=== PATIENT | female | born 1945 | race African-American/Black ===

== ENCOUNTER 2025-02-07 10:33 | Inpatient (IN) | payer OTHER ==
[2025-02-07 10:57] VITALS: BMI 46.0
[2025-02-07 12:09] LABS: ABSOLUTE IMMATURE GRANULOCYTES 0.01 x10^3/uL (0.0-0.031); BASOPHILS # 0.03 x10^3/uL (0.01-0.08); EOSINOPHIL % 2.5 % (0.7-5.8); EOSINOPHILS # 0.17 x10^3/uL (0.04-0.36); HEMATOCRIT 39.3 % (34.1-44.9); HEMOGLOBIN 12.3 g/dL (11.2-15.7); MCHC 31.3 g/dl (32.2-35.5); MEAN CELL VOLUME 92.9 fl (79.4-94.8); MEAN PLT VOLUME 9.5 fl (9.4-12.3); MONOCYTE # 0.54 x10^3/uL (0.24-0.86); MONOCYTE % 7.9 % (4.7-12.5); PLATELET COUNT 253 x10^3/uL (182-369); RDW 13.3 % (12.4-16.6)
[2025-02-07 12:26] LABS: POTASSIUM 3.8 mmol/L (3.5-5.1)
[2025-02-07 12:28] LABS: CALCIUM 9.7 mg/dL (8.5-10.1)
[2025-02-07 12:29] LABS: ALBUMIN 3.5 g/dl (3.4-5.0); BLOOD UREA NITROGEN 18.6 mg/dL (7-18)
[2025-02-07 12:32] LABS: CREATININE 1.2 mg/dL (0.55-1.3)
[2025-02-07 12:33] LABS: BILIRUBIN,TOTAL 0.5 mg/dL (0.2-1); TOT PROT 7.1 g/dl (6.4-8.2)
[2025-02-07] MEDS: ACETAMINOPHEN 1000 MG/100 ML BAG IVPB ONE (19:07)
[2025-02-08 09:11] LABS: ABSOLUTE IMMATURE GRANULOCYTES 0.01 x10^3/uL (0.0-0.031); BASOPHILS # 0.03 x10^3/uL (0.01-0.08); EOSINOPHIL % 2.8 % (0.7-5.8); EOSINOPHILS # 0.19 x10^3/uL (0.04-0.36); HEMATOCRIT 37.6 % (34.1-44.9); HEMOGLOBIN 11.9 g/dL (11.2-15.7); MCHC 31.6 g/dl (32.2-35.5); MEAN CELL VOLUME 93.5 fl (79.4-94.8); MEAN PLT VOLUME 10.1 fl (9.4-12.3); MONOCYTE # 0.67 x10^3/uL (0.24-0.86); MONOCYTE % 9.9 % (4.7-12.5); PLATELET COUNT 242 x10^3/uL (182-369); RDW 13.4 % (12.4-16.6)
[2025-02-08 09:46] LABS: CALCIUM 9.3 mg/dL (8.5-10.1)
[2025-02-08 09:50] LABS: PHOSPHOROUS 3.7 mg/dL (2.5-4.9)
[2025-02-08 09:51] LABS: TOT PROT 6.6 g/dl (6.4-8.2)
[2025-02-08 10:05] LABS: POTASSIUM 4.2 mmol/L (3.5-5.1)
[2025-02-08 10:11] LABS: BLOOD UREA NITROGEN 24.1 mg/dL (7-18)
[2025-02-08 10:12] LABS: ALBUMIN 3.1 g/dl (3.4-5.0)
[2025-02-08 10:14] LABS: BILIRUBIN,TOTAL 0.4 mg/dL (0.2-1)
[2025-02-09] MEDS: ATORVASTATIN CA 40 MG TABLET (FP) PO SCH (21:07)
[2025-02-10 06:47] VITALS: TEMP 97.5
[2025-02-10 13:01] VITALS: BP 170/67; PULSE 69; RESP 15
== END 2025-02-10 12:05 | disposition home or self-care (01) | DRG 813 ==
LOC: JER 10:33 → JERBED 15:38 → J4S 17:22
PROVIDERS: ADMIT Internal Medicine; ATTEND Internal Medicine
DX: D68.32 Hemorrhagic disorder due to extrinsic circulating anticoagulants (principal); I61.9 Nontraumatic intracerebral hemorrhage, unspecified; I10 Essential (primary) hypertension; E78.5 Hyperlipidemia, unspecified; T45.515A Adverse effect of anticoagulants, initial encounter
CPT/HCPCS: 36415; 70470-TC; 76705-TC; 80053; 83735; 84100; 85025; 93970-TC; 97116-GP; 97162-GP; 99291